=== PATIENT | female | born 1985 | race African-American/Black ===

== ENCOUNTER 2016-11-20 20:58 | Emergency (ER) | payer MEDICAID, OTHER ==
[~2016-11-20] VITALS: Ht 180.3 cm; Wt 200.0 kg
[~2016-11-20 20:58] MED LIST: ALBU6.7H INH; ASPI325T PO
[2016-11-20 21:03] VITALS: BP 122/58; PULSE 86; RESP 16; TEMP 97.1; O2SAT 98
[2016-11-20] MEDS ORDERED: ASPI81CH CHEW (21:44)
[2016-11-20] MEDS ORDERED: DEXAMETHASONE SOD PHOS 4 MG/ML VIAL IM ONE (21:45)
[2016-11-20] MEDS ORDERED: RESP: ALBUTEROL 2.5 MG/IPRATROPIUM 0.5 MG NEB (SCH) NEB ONE (21:45)
--- NOTE | 2016-11-20 21:45 | PD ---
HPI Chief Complaint: Cold / Flu Symptoms Time Seen by Provider: 21:35 Travel History International Travel<30 days: No Contact w/Intl Traveler<30days: No Traveled to known affect area: No History of Present Illness HPI 31-year-old female presents to the emergency department for evaluation of cough and chest congestion worsening over the last 3 days. Patient states she feels so tired breathe at times. Reports sore throat and ear pain as well. No definitive fever but has felt chilled. She has no other symptoms to report at this time. [facility] Past Medical History Asthma: Yes Cerebrovascular Accident: Yes (TIA) Diminished Hearing: No Immunizations Current: No : 2 Para: 1 Miscarriage: 1 Past Surgical History Section: Yes Endocrine Surgery: No Other Surgery: Yes (TONSILECTOMY) Social History Alcohol Use: No Tobacco Use: No Substance Use: No Allergies-Medications (Allergen,Severity, Reaction): Coded Allergies: Fish Containing Products (Unverified Allergy, Severe, 11/20/16) acetaminophen (Unverified Allergy, Severe, Itching, 11/20/16) oxycodone (Unverified Allergy, Severe, Itching, 11/20/16) Reported Meds & Prescriptions Reported Meds & Active Scripts Active Proair Hfa 8.5 GM Inh (Albuterol Sulfate) 90 Mcg/Act Aer 2 Puff INH Q4HR PRN 108 mcg/actuation Prednisone 50 Mg Tab 50 Mg PO DAILY 5 Days Reported Aspirin 81 Mg Chew 162 Mg CHEW ONCE Review of Systems Except as stated in HPI: all other systems reviewed are Neg Physical Exam Narrative GENERAL: Well-nourished female patient, ambulatory no acute distress. SKIN: Focused skin assessment warm/dry. HEAD: Atraumatic. Normocephalic. EYES: Pupils equal and round. No scleral icterus. No injection or drainage. ENT: No nasal bleeding or discharge. Mucous membranes pink and moist. NECK: Trachea midline. No JVD. CARDIOVASCULAR: Regular rate and rhythm. No murmur appreciated. RESPIRATORY: No accessory muscle use. Diminished to auscultation. Breath sounds equal bilaterally. GASTROINTESTINAL: Abdomen soft, non-tender, nondistended. Hepatic and splenic margins not palpable. MUSCULOSKELETAL: No obvious deformities. No clubbing. No cyanosis. No edema. NEUROLOGICAL: Awake and alert. No obvious cranial nerve deficits. Motor grossly within normal limits. Normal speech. PSYCHIATRIC: Appropriate mood and affect; insight and judgment normal. Data Data Last Documented VS Vital Signs Date Time Temp Pulse Resp B/P (MAP) Pulse Ox O2 Delivery O2 Flow Rate FiO2 11/20/16 23:01 11/20/16 21:56 98 21 11/20/16 21:03 97.1 86 16 Room Air Orders Orders Chest, Single Ap (11/20/16 ) Albuterol-Ipratropium Neb (Duoneb Neb) (11/20/16 21:45) Dexamethasone Inj (Decadron Inj) (11/20/16 21:45) MDM Medical Decision Making Medical Screen Exam Complete: Yes Emergency Medical Condition: Yes Medical Record Reviewed: Yes Differential Diagnosis Bronchitis versus pneumonia versus influenza versus pharyngitis versus common cold Narrative Course 31-year-old female presents to emergency department for evaluation. Patient appears without distress. Lung sounds are diminished. X-ray imaging is ordered with no acute cardiopulmonary disease identified. Patient is given DuoNeb and steroid treatment here. She verbalizes improvement after her neb treatment. Patient will be discharged home to follow-up with primary care provider and return immediately with any acute worsening symptoms. Diagnosis Primary Impression: Bronchitis Referrals: Primary Care Physician Patient Instructions: Acute Bronchitis (ED), General Instructions Departure Forms: Tests/Procedures, Work Release Enter return to work date: Nov 22, 2016 Additional Instructions: Humidified air may help to alleviate symptoms Follow-up with a primary care provider Ibuprofen as directed on the package as needed for pain Return immediately to the emergency department with any acute worsening symptoms Med/Other Pt SpecificInfo: Prescription(s) given Scripts Albuterol 8.5 GM Inh (Proair Hfa 8.5 GM Inh) 90 Mcg/Act Aer 2 PUFF INH Q4HR Y for SHORTNESS OF BREATH, #1 INHALER 0 Refills 108 mcg/actuation Prov: Alis Turner 11/20/16 Prednisone (Prednisone) 50 Mg Tab 50 MG PO DAILY for 5 Days, #5 TAB 0 Refills Prov: Alis Turner 11/20/16 Disposition: 01 DISCHARGE HOME Condition: Stable Alis Turner Nov 20, 2016 21:45
[2016-11-20 21:56] VITALS: O2SAT 98
--- NOTE | 2016-11-20 22:30 | RADRPT ---
EXAM DATE/TIME: 11/20/2016 21:54 [facility] COMPARISON: No previous studies available for comparison. INDICATIONS : Short of breath. MEDICAL HISTORY : TIA. SURGICAL HISTORY : None. ENCOUNTER: Initial ACUITY: 1 day PAIN SCORE: 0/10 LOCATION: Bilateral chest FINDINGS: A single view of the chest demonstrates the lungs to be symmetrically aerated without evidence of mas s, infiltrate or effusion. The cardiomediastinal contours are unremarkable. Osseous structures are intact. CONCLUSION: No evidence of acute cardiopulmonary disease. Barney Martin MD on November 20, 2016 at 22:28 Board Certified Radiologist. This report was verified electronically.
[2016-11-20] MEDS ORDERED: ALBUAER3 INH (22:45)
[2016-11-20] MEDS ORDERED: PRED50 PO (22:45)
== END 2016-11-20 23:02 | disposition home or self-care (01) ==
LOC: NEPD 20:58
DX: J40 Bronchitis, not specified as acute or chronic (principal); R07.0 Pain in throat; H92.09 Otalgia, unspecified ear; R68.83 Chills (without fever); Z87.09 Personal history of other diseases of the respiratory system; Z86.73 Personal history of transient ischemic attack (TIA), and cerebral infarction without residual deficits
CPT/HCPCS: 71010; 94664; 96372; 99284; J1100

== ENCOUNTER 2017-01-17 00:27 | Observation (INO) | payer OTHER ==
[~2017-01-17] VITALS: Ht 180.3 cm; Wt 190.0 kg
[~2017-01-17 00:27] MED LIST changes: -ALBU6.7H INH; +ALBUAER3 INH; +ASPI-516 CHEW; -ASPI325T PO; +PRED50 PO
[2017-01-17 00:28] VITALS: BP 180/80; PULSE 78; RESP 22; TEMP 98.2; O2SAT 98
[2017-01-17 01:45] VITALS: RESP 19; O2SAT 100
[2017-01-17] MEDS ORDERED: SODIUM CHLORIDE 0.9% FLUSH 10 ML FLUSH IVF PRN (02:00)
[2017-01-17] MEDS ORDERED: ASPIRIN 81 MG CHEW TAB PO ONE (02:00)
[2017-01-17 02:20] LABS: AUTOMATED NEUTROPHIL # 8.9 TH/MM3 (1.8-7.7); BASOPHIL # 0.1 TH/MM3 (0-0.2); BASOPHIL % 1.2 % (0.0-2.0); EOSINOPHIL # 0.1 TH/MM3 (0-0.4); EOSINOPHIL % 1.1 % (0.0-4.0); HEMATOCRIT 31.7 % (35.0-46.0); HEMO FLAGS DIFF FINAL; LYMPH % 16.2 % (9.0-44.0); MEAN CELL VOLUME 78.2 FL (80.0-100.0); MEAN CORPUSCULAR HEMOGLOBIN 25.4 PG (27.0-34.0); MEAN CORPUSCULAR HGB CONC 32.5 % (32.0-36.0); MONO % 9.4 % (0.0-8.0); NEUT % 72.1 % (16.0-70.0); PLATELET COUNT 379 TH/MM3 (150-450); RED BLOOD COUNT 4.06 MIL/MM3 (4.00-5.30); RED CELL DISTRIBUTION WIDTH 17.6 % (11.6-17.2); WHITE BLOOD COUNT 12.3 TH/MM3 (4.0-11.0)
[2017-01-17 02:25] LABS: APTT (PATIENT) 30.7 SEC (24.3-30.1); PROTHROMBIN TIME - PATIENT 11.2 SEC (9.8-11.6)
--- NOTE | 2017-01-17 02:31 | RADRPT ---
EXAM DATE/TIME: 01/17/2017 02:19 [facility] COMPARISON: CHEST SINGLE AP, November 20, 2016, 21:54. INDICATIONS : Chest tightness with numbness to left leg and foot. MEDICAL HISTORY : TIA SURGICAL HISTORY : None. ENCOUNTER: Initial ACUITY: 1 day PAIN SCORE: 7/10 LOCATION: Bilateral chest FINDINGS: A single view of the chest was obtained. The study is Midinspiratory with crowding of the lung vascul ature. This demonstrates the lungs to be symmetrically aerated without evidence of mass, infiltrate o r effusion. The cardiomediastinal contours are unremarkable. Osseous structures are intact. There a re overlying electrocardiogram leads. CONCLUSION: Midinspiratory exam with no definite acute cardiopulmonary disease. Ta Hong MD on January 17, 2017 at 2:29 Board Certified Radiologist. This report was verified electronically.
[2017-01-17 02:32] LABS: ANION GAP 7 MEQ/L (5-15); BICARBONATE 25.3 MEQ/L (21.0-32.0); BLOOD UREA NITROGEN 15 MG/DL (7-18); CHLORIDE 107 MEQ/L (98-107); GLOMERULAR FILTRATION RATE 81 ML/MIN (>89); MAGNESIUM 1.9 MG/DL (1.5-2.5); POTASSIUM 4.1 MEQ/L (3.5-5.1); SODIUM (NA) 139 MEQ/L (136-145)
[2017-01-17 02:36] LABS: CREATINE KINASE 233 U/L (26-192)
[2017-01-17 02:48] LABS: CKMB 0.7 NG/ML (0.5-3.6)
--- NOTE | 2017-01-17 03:10 | RADRPT ---
EXAM DATE/TIME: 01/17/2017 02:45 [facility] COMPARISON: CT BRAIN W/O CONTRAST, December 12, 2015, 16:52. INDICATIONS : Cephalgia. RADIATION DOSE: 56.35 CTDIvol (mGy) MEDICAL HISTORY : Non-responsive. SURGICAL HISTORY : None. ENCOUNTER: Initial ACUITY: 1 day PAIN SCALE: 5/10 LOCATION: cranial TECHNIQUE: Multiple contiguous axial images were obtained of the head. Using automated exposure control and adj ustment of the mA and/or kV according to patient size, radiation dose was kept as low as reasonably a chievable to obtain optimal diagnostic quality images. DICOM format image data is available electro nically for review and comparison. FINDINGS: CEREBRUM: The ventricles are normal for age. No evidence of midline shift, mass lesion, hemorrhage or acute in farction. No extra-axial fluid collections are seen. POSTERIOR FOSSA: The cerebellum and brainstem are intact. The 4th ventricle is midline. The cerebellopontine angle i s unremarkable. EXTRACRANIAL: The visualized portion of the orbits is intact. SKULL: The calvaria is intact. No evidence of skull fracture. CONCLUSION: Negative noncontrast head CT. Ta Hong MD on January 17, 2017 at 3:08 Board Certified Radiologist. This report was verified electronically.
[2017-01-17 03:59] VITALS: BP 135/69; PULSE 72; RESP 16; O2SAT 99
[2017-01-17] MEDS ORDERED: SODIUM CHLOR 0.9% 1000 ML INJ 1,000 ML IV SCH (04:34)
--- NOTE | 2017-01-17 04:38 | PD ---
HPI Chief Complaint: Chest Pain Time Seen by Provider: 01:52 Travel History International Travel<30 days: No Contact w/Intl Traveler<30days: No Traveled to known affect area: No History of Present Illness HPI 31-year-old female presents to the emergency department for complaint of chest pain and tingling in her left arm and leg. According to the patient around 6 PM on evening she started noticing some retrosternal chest discomfort that was intermittent in nature. Patient reports she's had this before but usually it goes away on its own. Patient denies any referred neck jaw back shoulder or abdominal pain. Patient also denies any extremity pain. Patient does complain of some tingling in the left arm and leg and notes some weakness. Patient has noted the symptoms since approximately 9 PM. Patient states she' s had these symptoms before as well and was told in the past she had a TIA and was seen in the past year here with symptoms affecting the right side and was told to follow-up with a neurologist but she did not do so. Patient denies any injury or fall. Patient's had no fever or chills. Patient states that symptoms seem to be improving. Patient does not report any headache, confusion , visual disturbance, facial droop, difficulty with speech, difficulty with swallowing, balance disturbance, but does note some left-sided tingling and some weakness. Patient states she drove herself to the hospital and has had no trouble ambulating this evening. Patient denies control pill use hormone replacement or tobacco use. PFSH Past Medical History Narrative Medical Asthma, TIA, , cholecystectomy, tonsillectomy; no alcohol use no tobacco use no substance use; family history hypertension; nursing notes reviewed Asthma: Yes Cerebrovascular Accident: Yes (TIA) Diminished Hearing: No Immunizations Current: No ?: Not : 2 Para: 1 Miscarriage: 1 Past Surgical History Section: Yes (x2) Cholecystectomy: Yes Endocrine Surgery: No Tonsillectomy: Yes Other Surgery: Yes (TONSILECTOMY) Social History Alcohol Use: No Tobacco Use: No Substance Use: No Allergies-Medications (Allergen,Severity, Reaction): Coded Allergies: Fish Containing Products (Unverified Allergy, Severe, 01/17/17) acetaminophen (Unverified Allergy, Severe, Itching, 01/17/17) oxycodone (Unverified Allergy, Severe, Itching, 01/17/17) shellfish derived (Verified Allergy, Intermediate, Itching, 01/17/17) IN THROAT Reported Meds & Prescriptions Reported Meds & Active Scripts Active Proair Hfa 8.5 GM Inh (Albuterol Sulfate) 90 Mcg/Act Aer 2 Puff INH Q4HR PRN 108 mcg/actuation Reported Aspirin 81 Mg Chew 162 Mg CHEW ONCE Review of Systems Except as stated in HPI: all other systems reviewed are Neg General / Constitutional: No: Fever, Chills Eyes: No: Diploplia, Blurred Vision, Visual changes HENT: No: Headaches, Vertigo, Lightheadedness, Neck Stiffness, Neck Pain Cardiovascular: No: Chest Pain or Discomfort, Palpitations, Diaphoresis, Syncope Respiratory: No: Cough, Shortness of Breath Gastrointestinal: No: Nausea, Vomiting Genitourinary: No: Urgency, Frequency, Dysuria Musculoskeletal: No: Myalgias, Arthralgias Skin: No Rash Neurologic: Positive: Focal Abnormalities ("mild weakness" LUE/LLE), Paresthesia (LUE/LLE), No: Weakness, Dizziness, Syncope, Coordination Problem, Headache, Change in Mentation, Slurred Speech, Seizures Physical Exam Narrative GENERAL: Well-developed well-nourished female in no acute distress no respiratory distress clinically obese; GCS 15 SKIN: Warm and dry. HEAD: Atraumatic. Normocephalic. EYES: Pupils equal and round. Extraocular muscles intact. No scleral icterus. No injection or drainage. ENT: No nasal bleeding or discharge. Mucous membranes pink and moist. NECK: Trachea midline. No JVD. CARDIOVASCULAR: Regular rate and rhythm. RESPIRATORY: No accessory muscle use. Clear to auscultation. Breath sounds equal bilaterally. GASTROINTESTINAL: Abdomen soft, non-tender, nondistended. Hepatic and splenic margins not palpable. MUSCULOSKELETAL: Extremities without clubbing, cyanosis, or edema. No obvious deformities. NEUROLOGICAL: Awake and alert. GCS 15. No obvious cranial nerve deficits. Motor grossly within normal limits except for mild weakness of the left upper extremity and left lower extremity with pronator drift at less than 10 seconds of the left upper extremity and 4-5/10 motor strength left upper extremity and 4 -5 over 5 left lower extremity. Five out of 5 muscle strength in the arms and legs. Normal speech. PSYCHIATRIC: Appropriate mood and affect; insight and judgment normal. Data Data Last Documented VS Vital Signs Date Time Temp Pulse Resp B/P (MAP) Pulse Ox O2 Delivery O2 Flow Rate FiO2 01/17/17 03:59 72 16 135/69 (91) 99 Room Air 01/17/17 01:45 2.00 01/17/17 00:28 98.2 Orders Orders Electrocardiogram (01/17/17 ) Electrocardiogram (01/17/17 01:52) Basic Metabolic Panel (Bmp) (01/17/17 01:52) Ckmb (Isoenzyme) Profile (01/17/17 01:52) Complete Blood Count With Diff (01/17/17 01:52) Magnesium (Mg) (01/17/17 01:52) Prothrombin Time / Inr (Pt) (01/17/17 01:52) Act Partial Throm Time (Ptt) (01/17/17 01:52) Troponin I (01/17/17 01:52) Chest, Single Ap (01/17/17 01:52) Ecg Monitoring (01/17/17 01:52) Bilateral Bp Monitoring (01/17/17 01:52) Iv Access Insert/Monitor (01/17/17 01:52) Oximetry (01/17/17 01:52) Oxygen Administration (01/17/17 01:52) Aspirin Chew (Aspirin Chew) (01/17/17 02:00) Sodium Chloride 0.9% Flush (Ns Flush) (01/17/17 02:00) Ct Brain W/O Iv Contrast(Rout) (01/17/17 ) Ed Urine Pregnancytest Poc (01/17/17 01:52) CKMB (01/17/17 01:50) CKMB% (01/17/17 01:50) Place In Observation (01/17/17 ) Code Status (01/17/17 04:34) Vital Signs (Adult) Q2HX12,Q4H (01/17/17 04:34) Nih Stroke Scale - Nihss .Daily (01/17/17 04:34) Neuro Checks Q2HX12,Q4H (01/17/17 04:34) Notify Dr: Other (01/17/17 04:34) Remove Urinary Catheter .ONCE (01/17/17 04:34) Ot Request For Service (01/17/17 04:34) Pt Request For Service (01/17/17 04:34) Case Management Consult (01/17/17 ) Activity Oob Ad Josefina (01/17/17 04:34) Nursing Bedside Swallow Assess .ONCE (01/17/17 04:34) Scd Bilateral/Knee High JIMBO.QSHIFT (01/17/17 04:34) Hemoglobin (Hgb) A1c (01/17/17 04:34) Lipid Profile (01/18/17 06:00) Us Carotid Arteries Comp Bilat (01/17/17 ) Mra Brain W/O Contrast (Cow) (01/17/17 ) Mri Brain W/O Contrast (01/17/17 ) Echo 2d Comp With Doppler (01/17/17 ) ^ Hold Medication (01/17/17 04:34) Consult Neurology (01/17/17 ) Sodium Chloride 0.9% Flush (Ns Flush) (01/17/17 09:00) Sodium Chloride 0.9% Flush (Ns Flush) (01/17/17 04:45) Sodium Chlor 0.9% 1000 Ml Inj (Ns 1000 M (01/17/17 04:34) Bedside Glucose JIMBO.CSUGAR (01/17/17 04:34) ^ Discontinue Insulin Orders (01/17/17 04:34) Insulin Aspart Supplemtl Scale (Novolog (01/17/17 08:00) Dextrose 50% In Olive (Vial) Inj (D50w (Vi (01/17/17 04:45) Glucagon Inj (Glucagon Inj) (01/17/17 04:45) Stand Up Forklift Operator / Telemetry JIMBO.Q8H (01/17/17 04:34) Consult Stroke Navigator (01/17/17 ) Heparin Inj (Heparin Inj) (01/17/17 04:45) Creatine Kinase (Cpk) (01/17/17 08:00) Creatine Kinase (Cpk) (01/17/17 14:00) Troponin I (01/17/17 08:00) Troponin I (01/17/17 14:00) Electrocardiogram (01/17/17 08:00) Electrocardiogram (01/17/17 14:00) Admit Order (Ed Use Only) (01/17/17 ) Stand Up Forklift Operator / Telemetry JIMBO.Q8H (01/17/17 04:39) Diet Heart Healthy (01/17/17 Breakfast) Activity Oob With Assistance (01/17/17 04:39) Notify Dr: Other (01/17/17 04:39) Labs Laboratory Tests Test 01/17/17 01:50 White Blood Count 12.3 TH/MM3 Red Blood Count 4.06 MIL/MM3 Hemoglobin 10.3 GM/DL Hematocrit 31.7 % Mean Corpuscular Volume 78.2 FL Mean Corpuscular Hemoglobin 25.4 PG Mean Corpuscular Hemoglobin Concent 32.5 % Red Cell Distribution Width 17.6 % Platelet Count 379 TH/MM3 Mean Platelet Volume 8.4 FL Neutrophils (%) (Auto) 72.1 % Lymphocytes (%) (Auto) 16.2 % Monocytes (%) (Auto) 9.4 % Eosinophils (%) (Auto) 1.1 % Basophils (%) (Auto) 1.2 % Neutrophils # (Auto) 8.9 TH/MM3 Lymphocytes # (Auto) 2.0 TH/MM3 Monocytes # (Auto) 1.2 TH/MM3 Eosinophils # (Auto) 0.1 TH/MM3 Basophils # (Auto) 0.1 TH/MM3 CBC Comment DIFF FINAL Differential Comment Prothrombin Time 11.2 SEC Prothromb Time International Ratio 1.0 RATIO Activated Partial Thromboplast Time 30.7 SEC Blood Urea Nitrogen 15 MG/DL Creatinine 0.97 MG/DL Random Glucose 98 MG/DL Calcium Level 8.4 MG/DL Magnesium Level 1.9 MG/DL Sodium Level 139 MEQ/L Potassium Level 4.1 MEQ/L Chloride Level 107 MEQ/L Carbon Dioxide Level 25.3 MEQ/L Anion Gap 7 MEQ/L Estimat Glomerular Filtration Rate 81 ML/MIN Total Creatine Kinase 233 U/L Creatine Kinase MB 0.7 NG/ML Creatine Kinase MB % 0.3 % Troponin I LESS THAN 0.02 NG/ML MDM Medical Decision Making Medical Screen Exam Complete: Yes Emergency Medical Condition: Yes Medical Record Reviewed: Yes Interpretation(s) Troponin I less than 0.02, not elevated; CK 233 mildly elevated but CK-MB percent is 0.2% not elevated EKG normal sinus rhythm rate [address] elevation injury pattern or ectopy noted Last Impressions Chest X-Ray 01/17/17 0152 Signed Impressions: Service Date/Time: Tuesday, January 17, 2017 02:19 - CONCLUSION: Midinspiratory exam with no definite acute cardiopulmonary disease. Ta Hong MD Head CT 01/17/17 0000 Signed Impressions: Service Date/Time: Tuesday, January 17, 2017 02:45 - CONCLUSION: Negative noncontrast head CT. 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 CT brain noncontrast ordered Lab values are found to be grossly within normal range except for nonspecific CK of 233 with normal MB percent is 0.3% and mild elevation of total white cell count 12,000 CT brain noncontrast reveals no acute process EKG sinus rhythm no ectopy or injury pattern Patient continues to show some improvement on her physical exam however concern for third visit for similar type TIA/CVA-type symptoms and needs completion of workup as well as serial cardiac enzymes case discussed with on-call medicine for admission At 5:15 AM as patient being prepared to be taken over to clinical decision unit patient states that she cannot be admitted to the hospital and she refuses to stay and will sign out AGAINST MEDICAL ADVICE. AMA: The risks of leaving against medical advice without further evaluation treatment were discussed with the patient. These risks include cardiac dysfunction, cardiac dysrhythmia, possible heart attack, possible stroke or . The patient indicated understanding of these risks and appeared to have the capacity to make this decision. Physician Communication Physician Communication case discussed with [facility] MD Dr Barnes Diagnosis Primary Impression: Numbness and tingling Additional Impression: Chest pain Admitting Information Admitting Physician Requests: Observation Disposition: 07 AGAINST MEDICAL ADVICE Condition: Stable Claudia Forde MD Jan 17, 2017 04:38
[2017-01-17] MEDS ORDERED: DEXTROSE 50% IN WATER 50 ML VIAL(D50) IV PUSH PRN (04:45)
[2017-01-17] MEDS ORDERED: HEPARIN SODIUM - SQ 10,000 UNITS/ML VIAL SQ SCH (04:45)
[2017-01-17] MEDS ORDERED: GLUCAGON 1 MG/ML VIAL OTHER PRN (04:45)
[2017-01-17] MEDS ORDERED: SODIUM CHLORIDE 0.9% FLUSH 5 ML FLUSH IV FLUSH PRN (04:45)
[2017-01-17] MEDS ORDERED: INSULIN ASPART SUPPLEMENTAL SCALE SQ SCH (08:00)
[2017-01-17] MEDS ORDERED: SODIUM CHLORIDE 0.9% FLUSH 5 ML FLUSH IV FLUSH SCH (09:00)
--- NOTE | 2017-01-17 13:19 | EKG ---
Date Performed: 01/17/2017 Time Performed: 00:48:08 PTAGE: 31 years EKG: Sinus rhythm LOW QRS VOLTAGE IN PRECORDIAL LEADS Since previous tracing, no significant change noted BORDERLINE E CG PREVIOUS TRACING : 12/12/2015 16.00 DOCTOR: Marco A Handy Interpretating Date/Time 01/17/2017 13:17:45
[2017-01-17 16:41] LABS: HEMOGLOBIN A1a 0.7 %; HEMOGLOBIN A1b 0.9 %; HEMOGLOBIN Ao 85.6 %; HEMOGLOBIN F 0.8 %; HEMOGLOBIN LA1C 1.6 %; HEMOGLOBIN P3 3.5 %
== END 2017-01-17 05:36 | disposition left against medical advice (07) ==
LOC: NEPC 00:27 → NEDA 04:40
PROVIDERS: ADMIT Family Medicine; ATTEND Family Medicine
DX: R07.89 Other chest pain (principal); R20.0 Anesthesia of skin; J45.909 Unspecified asthma, uncomplicated; R94.31 Abnormal electrocardiogram [ECG] [EKG]; Z86.73 Personal history of transient ischemic attack (TIA), and cerebral infarction without residual deficits
CPT/HCPCS: 70450; 71010; 80048; 82550; 82552; 83036; 83735; 84484; 84703; 85025; 85610; 85730; 93005; 96372; 99285; G0378; J1644

== ENCOUNTER 2017-01-17 11:02 | Observation (INO) | payer OTHER ==
[~2017-01-17] VITALS: Ht 180.3 cm; Wt 190.0 kg
[2017-01-17 11:07] VITALS: BP 158/78; PULSE 84; RESP 15; TEMP 98.4; O2SAT 100
[2017-01-17 11:39] VITALS: BP 135/67; PULSE 76; RESP 18
--- NOTE | 2017-01-17 14:00 | PD ---
HPI Chief Complaint: Numbness/Tingling Time Seen by Provider: 11:37 Travel History International Travel<30 days: No Contact w/Intl Traveler<30days: No Traveled to known affect area: No History of Present Illness HPI Some morbidly obese 31-year-old woman who presents to the emergency department complaint of left sided numbness tingling or weakness. She was seen in the emergency department overnight with left-sided numbness tingling weakness as well as chest pain. She is a history of intermittent episodes of numbness tingling or weakness in the past of unclear etiology. I saw her back in November of last year with right sided numbness and tingling symptoms. She states symptoms been intermittent, couple times a year, for the past several years. Initial workups unremarkable and her planning on admitting her for further evaluation for the numbness tingling weakness and chest pain but she left AMA. She states she still having weakness and so she would like to be reevaluated. History Past Medical History Narrative Medical Asthma Obesity Tetanus Vaccination: < 5 Years Influenza Vaccination: No LMP: 12/08/16 : 2 Para: 1 Social History Alcohol Use: No Tobacco Use: No Allergies-Medications (Allergen,Severity, Reaction): Coded Allergies: Fish Containing Products (Unverified Allergy, Severe, 01/17/17) acetaminophen (Unverified Allergy, Severe, Itching, 01/17/17) oxycodone (Unverified Allergy, Severe, Itching, 01/17/17) shellfish derived (Verified Allergy, Intermediate, Itching, 01/17/17) IN THROAT Reported Meds & Prescriptions Reported Meds & Active Scripts Active Reported Aspirin 81 Mg Chew 162 Mg CHEW ONCE Review of Systems Except as stated in HPI: all other systems reviewed are Neg Physical Exam Narrative GENERAL: Morbidly obese 31-year-old woman, no acute distress. SKIN: Focused skin assessment warm/dry. HEAD: Atraumatic. Normocephalic. EYES: Pupils equal and round. No scleral icterus. No injection or drainage. ENT: No nasal bleeding or discharge. Mucous membranes pink and moist. NECK: Trachea midline. No JVD. CARDIOVASCULAR: Regular rate and rhythm. No murmur appreciated. RESPIRATORY: No accessory muscle use. Clear to auscultation. Breath sounds equal bilaterally. GASTROINTESTINAL: Abdomen soft, non-tender, nondistended. Hepatic and splenic margins not palpable. MUSCULOSKELETAL: No obvious deformities. No clubbing. No cyanosis. No edema. NEUROLOGICAL: Awake and alert. Cranial nerve exams unremarkable. Sensation is normal in the face bilaterally. Patient demonstrates left-sided upper and lower extremity weakness on exam with direct testing. Possibly diminished effort. Also displaced diminished subjective sensation with paresthesias on the left arm and leg as well. PSYCHIATRIC: Appropriate mood and affect; insight and judgment normal. Data Data Last Documented VS Vital Signs Date Time Temp Pulse Resp B/P (MAP) Pulse Ox O2 Delivery O2 Flow Rate FiO2 01/17/17 11:43 97 01/17/17 11:39 76 18 135/67 (89) 01/17/17 11:07 98.4 Orders Orders Troponin I (01/17/17 11:50) Electrocardiogram (01/17/17 ) Admit Order (Ed Use Only) (01/17/17 ) Labs Laboratory Tests Test 01/17/17 12:50 Troponin I LESS THAN 0.02 NG/ML MDM Medical Decision Making Medical Screen Exam Complete: Yes Emergency Medical Condition: Yes Interpretation(s) Reviewed labs EKG imaging from earlier today. My review of EKG from this visit, normal sinus rhythm at a rate of 72, normal axis, normal intervals, no acute ischemia. Troponin negative Differential Diagnosis Numbness and tingling, paresthesias, hysteria, MS, CVA or stroke, other Narrative Course Medical decision making 31-year-old morbidly obese woman presents with left-sided numbness tingling weakness on exam. I don't think that she has MS or stroke. Symptoms been ongoing intermittent for a while. Complex migraine seems possible but unlikely. Possibly functional weakness. Nonetheless with objective neurologic deficits, agree with Dr. Forde admission for further evaluation. Diagnosis Primary Impression: Numbness and tingling Additional Impression: Left-sided weakness Admitting Information Admitting Physician Requests: Solomon Eckert MD Jan 17, 2017 14:00
[2017-01-17] MEDS ORDERED: MAGNESIUM HYDROXIDE SUSP 30 ML CUP PO PRN (15:00)
[2017-01-17] MEDS ORDERED: SENNOSIDES 8.6 MG TAB PO PRN (15:00)
[2017-01-17] MEDS ORDERED: BISACODYL 10 MG SUPP RECTAL PRN (15:00)
[2017-01-17] MEDS ORDERED: NALOXONE HCL 0.4 MG/ML AMP IV PUSH PRN (15:00)
[2017-01-17] MEDS ORDERED: ACETAMINOPHEN 325 MG TAB PO PRN (15:00)
[2017-01-17] MEDS ORDERED: ENOXAPARIN SODIUM 40 MG/0.4 ML SYRINGE SQ SCH (15:00)
[2017-01-17] MEDS ORDERED: SODIUM CHLORIDE 0.9% FLUSH 10 ML FLUSH IV FLUSH PRN (15:00)
[2017-01-17] MEDS ORDERED: LACTULOSE SYRUP 20 GM/30 ML CUP PO PRN (15:00)
[2017-01-17 15:36] VITALS: BP 136/75; PULSE 82; RESP 20; O2SAT 100
[2017-01-17 16:35] VITALS: BP 136/75
[2017-01-17 16:59] VITALS: BP 137/58; PULSE 80; RESP 20; TEMP 98.2; O2SAT 99
[2017-01-17 17:27] LABS: CREATINE KINASE 183 U/L (26-192)
[2017-01-17 17:39] LABS: CKMB 0.7 NG/ML (0.5-3.6)
--- NOTE | 2017-01-17 19:02 | HHI.HP ---
[facility] Service Family Medicine Primary Care Physician No Primary Care Physician Admission Diagnosis left-sided numbness, left-sided weakness Diagnoses: International Travel<30 Days: No Contact w/Intl Traveler<30days: No Known Affected Area: No History of Present Illness 31-year-old morbidly obese female with history of Budd-Chiari malformation presenting with a 1 day history of left-sided numbness/tingling and weakness as well as some substernal chest pain/pressure. Yesterday evening, she started experiencing some numbness and tingling of her left upper extremity and to a lesser degree her left lower extremity. She feels very slightly weak in the same areas. At the same time, she felt some substernal chest pressure. She came into the ER around 2 AM this morning where workup was initiated including a normal troponin and EKG. She left AMA, and now is back. She states that her chest pain has resolved, but she still has some numbness and tingling in her left forearm and hand and to lesser degree her left foot. She denies any shortness of breath or current chest pain. She denies dyspnea on exertion. She denies headaches. She does note that she had a little bit of blurry vision yesterday, but this is also resolved. (Pepe Hanley MD R2) Review of Systems Constitutional: DENIES: Fever, Chills Eyes: COMPLAINS OF: Blurred vision, DENIES: Vision loss Ears, nose, mouth, throat: DENIES: Throat pain, Ear Pain, Sinus Pain Respiratory: DENIES: Cough, Wheezing, Shortness of breath Cardiovascular: COMPLAINS OF: Chest pain, DENIES: Palpitations, Dyspnea on Exertion, Lower Extremity Edema, Orthopnea Gastrointestinal: DENIES: Abdominal pain, Black stools, Bloody stools, Constipation, Diarrhea, Nausea, Vomiting Genitourinary: DENIES: Urinary frequency, Dysuria Musculoskeletal: DENIES: Joint pain, Muscle aches Integumentary: DENIES: Rash Immunologic/allergic: DENIES: Urticaria Neurologic: COMPLAINS OF: Paresthesias, DENIES: Abnormal gait, Headache, Localized weakness, Seizures, Speech Problems, Tremor Psychiatric: DENIES: Anxiety, Depression (Pepe Hanley MD R2) Past Family Social History Past Medical History Budd-Chiari malformation Similar episodes of numbness/tingling or isolated weakness in the past, has had MRIs; only diagnosis Budd-Chiari information Past Surgical History None Reported Medications Aspirin 81 mg daily (Pepe Hanley MD R2) Allergies: Coded Allergies: Fish Containing Products (Unverified Allergy, Severe, 01/17/17) oxycodone (Unverified Allergy, Severe, Itching, 01/17/17) shellfish derived (Verified Allergy, Intermediate, Itching, 01/17/17) IN THROAT Active Ordered Medications Current Medications Medications (Trade) Dose Ordered Sig/Nikia Route Start Time Stop Time Status Last Admin (NS Flush) 2 ml UNSCH PRN IV FLUSH 01/17/17 15:00 (NS Flush) 2 ml BID IV FLUSH 01/17/17 21:00 01/17/17 21:00 (Tylenol) 650 mg Q4H PRN PO 01/17/17 15:00 (Lovenox Inj) 40 mg Q24H SQ 01/17/17 15:00 01/17/17 15:05 (Narcan Inj) 0.4 mg UNSCH PRN IV PUSH 01/17/17 15:00 (Elizbaet-Colace) 1 tab BID PO 01/17/17 21:00 (Milk Of Magnesia Liq) 30 ml Q12H PRN PO 01/17/17 15:00 (Senokot) 17.2 mg Q12H PRN PO 01/17/17 15:00 (Dulcolax Supp) 10 mg DAILY PRN RECTAL 01/17/17 15:00 (Lactulose Liq) 30 ml DAILY PRN PO 01/17/17 15:00 (Aspirin Chew) 81 mg DAILY CHEW 01/18/17 09:00 Family History Negative for early cardiac disease Social History Does not smoke, drink, or use illicit drugs. (Pepe Hanley MD R2) Physical Exam Vital Signs Vital Signs Date Time Temp Pulse Resp B/P (MAP) Pulse Ox O2 Delivery O2 Flow Rate FiO2 01/17/17 16:59 98.2 80 20 137/58 (84) 99 01/17/17 16:35 136/75 (95) 99 01/17/17 15:36 82 20 136/75 (95) 100 01/17/17 11:43 97 01/17/17 11:39 76 18 135/67 (89) 01/17/17 11:07 98.4 84 15 158/78 (104) 100 Physical Exam GENERAL: Morbidly obese female lying in bed in no acute distress SKIN: No rashes, ecchymoses or lesions. Cool and dry. HEAD: NC/AT EYES: PERRL. EOMI. No conjunctival injection or drainage. ENT: MMM, OP without erythema, tonsillar swelling, or exudate. NECK: Supple, no lymphadenopathy. Large neck circumference. No JVD. CARDIOVASCULAR: NRRR. Normal S1/S2. No MRG RESPIRATORY: Normal rate and effort. CTAB. No crackles or wheezes. GASTROINTESTINAL: Abdomen soft, non-distended, non-tender. Unable to determine presence of organomegaly or masses due to body habitus. MUSCULOSKELETAL: Extremities without clubbing, cyanosis, or edema. NEUROLOGICAL: Awake and alert. Cranial nerves II through XII intact. Sensation to light touch diminished over C6 to 8 dermatome, L4 and L5 dermatome of left side. Poor effort at first on left side, but on motivation strength is 5 out of 5 throughout all major muscle groups. Normal speech. Repetition and naming intact. Rapid alternating movement testing negative. Heel to gracia testing negative. Finger to nose testing negative. Laboratory Laboratory Tests Test 01/17/17 12:50 01/17/17 16:45 Troponin I LESS THAN 0.02 LESS THAN 0.02 Total Creatine Kinase 183 Creatine Kinase MB 0.7 (Pepe Hanley MD R2) Imaging Negative head CT on 01/17/17 Course Item Value Date Time White Blood Count 12.3 TH/MM3 H 01/17/17 0150 Red Blood Count 4.06 MIL/MM3 01/17/17 015 Hemoglobin 10.3 GM/DL L 01/17/17 015 Hematocrit 31.7 % L 01/17/17 0150 Mean Corpuscular Volume 78.2 FL L 01/17/17 0150 Mean Corpuscular Hemoglobin 25.4 PG L 01/17/17 015 Mean Corpuscular Hemoglobin Concent 32.5 % 01/17/17 015 Red Cell Distribution Width 17.6 % H 01/17/17 015 Platelet Count 379 TH/MM3 01/17/17 015 Mean Platelet Volume 8.4 FL 01/17/17 0150 Neutrophils (%) (Auto) 72.1 % H 01/17/17 015 Lymphocytes (%) (Auto) 16.2 % 01/17/17149 Monocytes (%) (Auto) 9.4 % H 01/17/17 015 Eosinophils (%) (Auto) 1.1 % 01/17/17 015 Basophils (%) (Auto) 1.2 % 01/17/17149 Neutrophils # (Auto) 8.9 TH/MM3 H 01/17/17149 Lymphocytes # (Auto) 2.0 TH/MM3 01/17/17149 Monocytes # (Auto) 1.2 TH/MM3 H 01/17/17149 Eosinophils # (Auto) 0.1 TH/MM3 01/17/17149 Basophils # (Auto) 0.1 TH/MM3 01/17/17149 CBC Comment DIFF FINAL 01/17/17149 Sodium Level 139 MEQ/L 01/17/17149 Potassium Level 4.1 MEQ/L 01/17/17149 Chloride Level 107 MEQ/L 01/17/17149 Carbon Dioxide Level 25.3 MEQ/L 01/17/17149 Anion Gap 7 MEQ/L 01/17/17149 Blood Urea Nitrogen 15 MG/DL 01/17/17149 Creatinine 0.97 MG/DL 01/17/17149 Estimat Glomerular Filtration Rate 81 ML/MIN L 01/17/17149 Random Glucose 98 MG/DL 01/17/17149 Hemoglobin A1c 5.5 % 01/17/17149 Calcium Level 8.4 MG/DL L 01/17/17149 Magnesium Level 1.9 MG/DL 01/17/17149 Total Creatine Kinase 152 U/L 01/17/172118 Creatine Kinase MB LESS THAN 0.5 NG/ML L 01/17/172118 Creatine Kinase MB % 0.3 % 01/17/17149 Troponin I LESS THAN 0.02 NG/ML L 01/17/172118 Prothrombin Time 11.2 SEC 01/17/17149 Prothromb Time International Ratio 1.0 RATIO 01/17/17149 Activated Partial Thromboplast Time 30.7 SEC H 01/17/17149 (Pepe Hanley MD R2) Caprini VTE Risk Assessment Caprini VTE Risk Assessment: Mod/High Risk (score >= 2) (Pepe Hanley MD R2) Assessment and Plan Assessment and Plan 31-year-old with history of Budd-Chiari malformation presenting with: (Pepe Hanley MD R2) Attending Attestation THIS CASE WAS DISCUSSED WITH THE RESIDENT PHYSICIAN. I HAVE REVIEWED THE RECORD AND AGREE WITH THE ABOVE NOTE AND PLAN OF CARE WAS DISCUSSED. I HAVE AUTHORIZED THE ORDER FOR PLACEMENT IN OUT-PATIENT OBSERVATION STATUS. (Jessica Naik MD) Problem List: (1) Chest pain in adult ICD Codes: R07.9 - Chest pain, unspecified Status: Resolved Plan: Chest pain now resolved, however with obesity and gender ACS should be fully ruled out Initial EKG showing NSR with normal rate Initial troponin < 0.02 - Trend troponin, EKG - Tylenol PRN for pain - Continue home ASA (2) Numbness and tingling ICD Codes: R20.0 - Anesthesia of skin; R20.2 - Paresthesia of skin Status: Acute Plan: Exam benign, recurrent problem, h/o Budd-Chiari malformation on prior scans - MRI brain to r/o MS, other intracranial pathology - No h/o neck injury, but could consider neck imaging on outpatient basis if symptoms persist (3) Left-sided weakness ICD Codes: R53.1 - Weakness Status: Acute Plan: Reported weakness, but full strength on exam with effort - MRI as above (4) Leukocytosis ICD Codes: D72.829 - Elevated white blood cell count, unspecified Plan: Mildly elevated WBC of ~12 on admission. Exam benign. UA negative CXR negative - Repeat CBC in AM - Monitor clinically for other signs/symptoms (5) FEN/PPX Plan: Fluids: PO only Elecs: Monitor and replete PRN Nutrition: Diet regular basic DVT: Lovenox 40 mg SQ daily Code status: Full code (Pepe Hanley MD R2) Problem Qualifiers (1) Leukocytosis: Qualified Codes: D72.829 - Elevated white blood cell count, unspecified Pepe Hanley MD R2 Jan 17, 2017 19:02 Jessica Naik MD Jan 18, 2017 07:49
[2017-01-17 19:37] VITALS: BP 134/65; PULSE 76; RESP 18; TEMP 98.4; O2SAT 99
[2017-01-17] MEDS: SODIUM CHLORIDE 0.9% FLUSH 10 ML FLUSH IV FLUSH SCH (21:00)
[2017-01-17] MEDS: DOCUSATE SODIUM 50 MG/SENNA 8.6 MG TAB PO SCH (21:00)
[2017-01-17 21:58] LABS: CREATINE KINASE 152 U/L (26-192)
[2017-01-17 22:10] LABS: CKMB LESS THAN 0.5 NG/ML (0.5-3.6)
[2017-01-18 00:44] VITALS: BP 131/78; PULSE 68; RESP 18; TEMP 98.5; O2SAT 98
[2017-01-18 04:45] VITALS: BP 127/63; PULSE 67; RESP 18; TEMP 98.8; O2SAT 100
[2017-01-18 07:05] LABS: BICARBONATE 22.6 MEQ/L (21.0-32.0); POTASSIUM 4.2 MEQ/L (3.5-5.1)
[2017-01-18 07:41] LABS: AUTOMATED NEUTROPHIL # 6.6 TH/MM3 (1.8-7.7); BASOPHIL # 0.1 TH/MM3 (0-0.2); BASOPHIL % 0.9 % (0.0-2.0); EOSINOPHIL # 0.1 TH/MM3 (0-0.4); EOSINOPHIL % 1.4 % (0.0-4.0); HEMO FLAGS DIFF FINAL; LYMPH % 16.5 % (9.0-44.0); LYMPHOCYTE # 1.5 TH/MM3 (1.0-4.8); MEAN CELL VOLUME 78.4 FL (80.0-100.0); MEAN CORPUSCULAR HEMOGLOBIN 24.4 PG (27.0-34.0); MEAN CORPUSCULAR HGB CONC 31.1 % (32.0-36.0); MONO % 10.8 % (0.0-8.0); NEUT % 70.4 % (16.0-70.0); PLATELET COUNT 351 TH/MM3 (150-450); RED BLOOD COUNT 4.08 MIL/MM3 (4.00-5.30); RED CELL DISTRIBUTION WIDTH 17.6 % (11.6-17.2); WHITE BLOOD COUNT 9.4 TH/MM3 (4.0-11.0)
[2017-01-18 08:01] VITALS: BP 116/56; PULSE 77; RESP 20; TEMP 98.1; O2SAT 98
--- NOTE | 2017-01-18 08:03 | HHI.FPPN ---
Problem Problem List: (1) Morbid obesity due to excess calories (2) Weakness of right side of body (3) Numbness and tingling Subjective Subjective 31 year old woman with h/o Budd-Chiari malformation and morbid obesity c/o episode of left sided weakness, some tingling and chest pressure. She states she had concerns at home and so she decided to come to the ED to be evaluated. She states these episodes have been happening for a long time and she has been in an out of the ER for workup and nothing has been found except the Budd- Chiari malformation. She denies change in speech or vision, during the entire time she was having weakness she was able to ambulate normally. At the time of her evaluation this morning the patients symptoms had completely resolved. She denies CP, SOB, RICHARDS, Weakness, numbness, tingling or any other neurologic symptom and ROS otherwise negative Please see the resident history and physical for further clarification of her history Past Medical History Budd-Chiari malformation Similar episodes of numbness/tingling or isolated weakness in the past, has had MRIs; only diagnosis Budd-Chiari information Past Surgical History None Reported Medications Aspirin 81 mg daily [facility] Objective Objective Laboratory Tests - Abnormals Test 01/17/17 12:50 01/17/17 16:45 01/17/17 21:19 01/18/17 06:15 Troponin I LESS THAN 0.02 NG/ML LESS THAN 0.02 NG/ML LESS THAN 0.02 NG/ML Creatine Kinase MB LESS THAN 0.5 NG/ML Hemoglobin 9.9 GM/DL Hematocrit 32.0 % Mean Corpuscular Volume 78.4 FL Mean Corpuscular Hemoglobin 24.4 PG Mean Corpuscular Hemoglobin Concent 31.1 % Red Cell Distribution Width 17.6 % Neutrophils (%) (Auto) 70.4 % Monocytes (%) (Auto) 10.8 % Monocytes # (Auto) 1.0 TH/MM3 Calcium Level 8.3 MG/DL Vital Signs 01/17/17 01/17/17 01/17/17 01/17/17 11:07 11:39 11:43 15:36 Temp 98.4 Pulse 84 76 82 Resp 15 18 20 B/P (MAP) 158/78 (104) 135/67 (89) 136/75 (95) Pulse Ox 100 97 100 01/17/17 01/17/17 01/17/17 01/18/17 16:35 16:59 19:37 00:44 Temp 98.2 98.4 98.5 Pulse 80 76 68 Resp 20 18 18 B/P (MAP) 136/75 (95) 137/58 (84) 134/65 (88) 131/78 (95) Pulse Ox 99 99 99 98 01/18/17 04:45 Temp 98.8 Pulse 67 Resp 18 B/P (MAP) 127/63 (84) Pulse Ox 100 Physical exam GEN: normally nourished, in NAD, morbid obesity EYES: conjunctiva normal, PERRLA, EOMI. ENT: Mouth and pharynx normal. NECK: thyroid midline, carotids symmetrical. LUNGS: clear A-P, respiratory effort is normal. CARDIOVASCULAR: RR without murmur or gallop. No significant edema. GI/ABD: soft without masses, without organomegaly. : no CVA tenderness NEURO: No focal deficits. Gait is normal, CN intact, strength 5/5 all extremities and equal, normal sensation SKIN: color normal, no rashes noted. HEME/LYMPH: no bruising, petechia or significant adenopathy MUSC: back is normal in appearance. Extremities are normal in appearance. PSYCH/MENTAL STATUS: Alert and oriented x 3. Assessment Assessment: (1) Numbness and tingling (2) Weakness of right side of body (3) Morbid obesity due to excess calories Assessment 31 year old woman that is morbidly obese with recurrent subjective weakness and numbness which workup thus far has been not revealing. She was ruled out for ACS and CT head was wnl. The patients size at this time is too large for eval with the MRI here at [place]. At this time her symptoms have resolved. DWPT in detail that she needs further outpatient management and workup, she now has health insurance so will fu with her PCP for further workup and treatment. Very low likelihood this is an ischemic process but ok to continue the Baby ASA daily on discharge. Would rec she also fu with neurology. 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 Unsure of how the Budd-chiari malformation plays a role in her symptoms but rec she fu with neurology for this. At this time she is stable, back to normal with no symptoms and I do not think she needs to continue to be monitored or worked up in the inpatient hospital setting at this time. DC today, continue her baby ASA and fu with PCP and neurology PLAN PLAN Patient seen and dw the resident team -- Dr. Barillas, Dr. Hodges, Dr. Talon Naik,Jessica Perdomo MD Jan 18, 2017 08:03
[2017-01-18] MEDS ORDERED: ASPIRIN 81 MG CHEW TAB CHEW SCH (09:00)
[2017-01-18] MEDS: DOCUSATE SODIUM 50 MG/SENNA 8.6 MG TAB PO SCH (09:34)
[2017-01-18] MEDS: SODIUM CHLORIDE 0.9% FLUSH 10 ML FLUSH IV FLUSH SCH (09:34)
--- NOTE | 2017-01-18 10:16 | HHI.DCPOC ---
Discharge Care Plan Diagnosis: (1) Left-sided weakness (2) Numbness and tingling (3) Chest pain in adult Goals to Promote Your Health * To prevent worsening of your condition and complications * To maintain your health at the optimal level Directions to Meet Your Goals Take your medications as prescribed Follow your dietary instruction Follow activity as directed Keep your appointments as scheduled Take your immunizations and boosters as scheduled If your symptoms worsen call your PCP, if no PCP go to Urgent Care Center or Emergency Room Smoking is Dangerous to Your Health. Avoid second hand smoke Call the 24-hour hour crisis hotline for domestic abuse at Cliff Barillas MD, R1 Jan 18, 2017 10:16
--- NOTE | 2017-01-18 14:52 | EKG ---
Date Performed: 01/17/2017 Time Performed: 21:16:40 PTAGE: 31 years EKG: Sinus rhythm NON-SPECIFIC ST/T WAVE CHANGES PREVIOUS TRACING : 01/17/2017 17.09 Compared to prior tracing no significant change DOCTOR: Alexys Gaivn Interpretating Date/Time 01/18/2017 14:51:02
--- NOTE | 2017-01-18 15:17 | EKG ---
Date Performed: 01/17/2017 Time Performed: 17:09:20 PTAGE: 31 years EKG: Sinus rhythm NORMAL ECG PREVIOUS TRACING : 01/17/2017 11.48 Compared to prior tracing no significant change DOCTOR: Alexys Gavin Interpretating Date/Time 01/18/2017 15:16:34
--- NOTE | 2017-01-18 18:08 | EKG ---
Date Performed: 01/17/2017 Time Performed: 11:48:26 PTAGE: 31 years EKG: Sinus rhythm NORMAL ECG Compared to the PREVIOUS TRACING from 01/17/17, no significant change DOCTOR: Alexys Gavin Interpretating Date/Time 01/18/2017 18:07:11
== END 2017-01-18 12:34 | disposition home or self-care (01) ==
LOC: NEPC 11:02 → NEDA 13:49 → NEPFCDU 16:44
PROVIDERS: ADMIT Family Medicine; ATTEND Family Medicine
DX: R53.1 Weakness (principal); R07.89 Other chest pain; R20.2 Paresthesia of skin; H53.8 Other visual disturbances; I82.0 Budd-Chiari syndrome; J45.909 Unspecified asthma, uncomplicated; E66.01 Morbid (severe) obesity due to excess calories; Z68.43 Body mass index [BMI] 50.0-59.9, adult; Z79.82 Long term (current) use of aspirin
CPT/HCPCS: 80048; 82550; 82552; 84484; 85025; 93005; 99285; G0378; J1650

== ENCOUNTER 2017-04-09 18:53 | Emergency (ER) | payer OTHER ==
[~2017-04-09] VITALS: Ht 180.3 cm; Wt 208.2 kg
[~2017-04-09 18:53] MED LIST changes: -ALBUAER3 INH; -PRED50 PO
[2017-04-09 18:55] VITALS: BP 142/98; PULSE 72; RESP 16; TEMP 97.8; O2SAT 99
--- NOTE | 2017-04-09 20:36 | PD ---
HPI Chief Complaint: Chest Pain Time Seen by Provider: 19:02 Travel History International Travel<30 days: No Contact w/Intl Traveler<30days: No Traveled to known affect area: No History of Present Illness HPI Patient is a morbidly obese 31-year-old female with a history of chest pain , patient's complaint today is left lower leg swelling also bilateral foot edema not on diuretic , pt has no fam Hx of coagulopathy , 4 days localized pain , she did not take any meds for this or see another MD for this [facility] Past Medical History Asthma: Yes Cancer: No Cardiovascular Problems: No Cerebrovascular Accident: Yes Diminished Hearing: No Endocrine: No Psychiatric: No Respiratory: Yes Immunizations Current: No Tetanus Vaccination: < 5 Years Influenza Vaccination: No ?: Not LMP: 03/11/17 : 2 Para: 1 Miscarriage: 1 Past Surgical History Section: Yes (x2) Cholecystectomy: Yes Endocrine Surgery: No Tonsillectomy: Yes Other Surgery: Yes (TONSILECTOMY) Social History Alcohol Use: Yes (socially) Tobacco Use: No Substance Use: Yes (Marijuana socially) Allergies-Medications (Allergen,Severity, Reaction): Coded Allergies: Fish Containing Products (Unverified Allergy, Severe, 01/17/17) oxycodone (Unverified Allergy, Severe, Itching, 01/17/17) shellfish derived (Verified Allergy, Intermediate, Itching, 01/17/17) IN THROAT Reported Meds & Prescriptions Reported Meds & Active Scripts Active Reported Aspirin 81 Mg Chew 162 Mg CHEW ONCE Review of Systems Except as stated in HPI: all other systems reviewed are Neg (left posterior calf pain) Musculoskeletal: Positive: Myalgias (left lower posterior calf pain) Physical Exam Narrative GENERAL: Patient is nontoxic in no apparent distress sitting with her legs hanging over the edge of the bed SKIN: Warm and dry. HEAD: Atraumatic. Normocephalic. EYES: Pupils equal and round. No scleral icterus. No injection or drainage. ENT: No nasal bleeding or discharge. Mucous membranes pink and moist. NECK: Trachea midline. No JVD. CARDIOVASCULAR: Regular rate and rhythm. RESPIRATORY: No accessory muscle use. Clear to auscultation. Breath sounds equal bilaterally. GASTROINTESTINAL: Abdomen soft, non-tender, nondistended. Hepatic and splenic margins not palpable. MUSCULOSKELETAL: Extremities minimal edema top of feet bilateral , left lower extremity has tenderness to the proximal upper posterior calf Pt has pain reaction with palpation And minimal edema in the feet BILATERAL seems more gravity dependent than vascular insufficiency NEUROLOGICAL: Awake and alert. No obvious cranial nerve deficits. Motor grossly within normal limits. Five out of 5 muscle strength in the arms and legs. Normal speech. PSYCHIATRIC: Appropriate mood and affect; insight and judgment normal. Data Data Last Documented VS Vital Signs Date Time Temp Pulse Resp B/P (MAP) Pulse Ox O2 Delivery O2 Flow Rate FiO2 04/09/17 23:07 04/09/17 21:05 65 16 98 Room Air 04/09/17 18:55 97.8 Orders Orders Us Leg Venous Doppler (04/09/17 ) Complete Blood Count With Diff (04/09/17 19:50) Comprehensive Metabolic Panel (04/09/17 19:50) Prothrombin Time / Inr (Pt) (04/09/17 19:50) Ketorolac Inj (Toradol Inj) (04/09/17 22:30) Ed Discharge Order (04/09/17 22:32) Labs Laboratory Tests Test 04/09/17 20:00 White Blood Count 9.7 TH/MM3 Red Blood Count 4.41 MIL/MM3 Hemoglobin 10.9 GM/DL Hematocrit 34.0 % Mean Corpuscular Volume 77.2 FL Mean Corpuscular Hemoglobin 24.6 PG Mean Corpuscular Hemoglobin Concent 31.9 % Red Cell Distribution Width 17.3 % Platelet Count 451 TH/MM3 Mean Platelet Volume 8.4 FL Neutrophils (%) (Auto) 68.0 % Lymphocytes (%) (Auto) 19.8 % Monocytes (%) (Auto) 9.1 % Eosinophils (%) (Auto) 2.1 % Basophils (%) (Auto) 1.0 % Neutrophils # (Auto) 6.6 TH/MM3 Lymphocytes # (Auto) 1.9 TH/MM3 Monocytes # (Auto) 0.9 TH/MM3 Eosinophils # (Auto) 0.2 TH/MM3 Basophils # (Auto) 0.1 TH/MM3 CBC Comment DIFF FINAL Differential Comment Prothrombin Time 10.6 SEC Prothromb Time International Ratio 1.0 RATIO Blood Urea Nitrogen 8 MG/DL Creatinine 0.81 MG/DL Random Glucose 81 MG/DL Total Protein 8.2 GM/DL Albumin 3.1 GM/DL Calcium Level 8.5 MG/DL Alkaline Phosphatase 96 U/L Aspartate Amino Transf (AST/SGOT) 21 U/L Alanine Aminotransferase (ALT/SGPT) 17 U/L Total Bilirubin 0.3 MG/DL Sodium Level 136 MEQ/L Potassium Level 4.0 MEQ/L Chloride Level 101 MEQ/L Carbon Dioxide Level 25.7 MEQ/L Anion Gap 9 MEQ/L Estimat Glomerular Filtration Rate 100 ML/MIN MDM Medical Decision Making Medical Screen Exam Complete: Yes Emergency Medical Condition: Yes Differential Diagnosis Differential diagnosis includes DVT versus edema of obesity versus peripheral vascular disease versus venous insufficiency versus trauma versus popliteal Jean Baptiste cyst Narrative Course Ultrasound DVT rule out is negative for clot patient is given Toradol 30 IV with much improvement of her pain and discharged follow-up as an outpatient with her primary care doctor will write her for 12.5 of hydrochlorothiazide daily a.m. for 7 days . and folow up with PCP and elevate her feet as much as possible Diagnosis Primary Impression: Peripheral edema Additional Impression: Calf pain Qualified Codes: M79.662 - Pain in left lower leg Patient Instructions: General Instructions, Leg Pain (ED) Disposition: 01 DISCHARGE HOME Condition: Good Flaquito Chatterjee MD Apr 09, 2017 20:36
[2017-04-09 20:45] LABS: AUTOMATED NEUTROPHIL # 6.6 TH/MM3 (1.8-7.7); BASOPHIL # 0.1 TH/MM3 (0-0.2); EOSINOPHIL # 0.2 TH/MM3 (0-0.4); EOSINOPHIL % 2.1 % (0.0-4.0); HEMOGLOBIN 10.9 GM/DL (11.6-15.3); LYMPH % 19.8 % (9.0-44.0); LYMPHOCYTE # 1.9 TH/MM3 (1.0-4.8); MEAN CELL VOLUME 77.2 FL (80.0-100.0); MEAN CORPUSCULAR HEMOGLOBIN 24.6 PG (27.0-34.0); MEAN CORPUSCULAR HGB CONC 31.9 % (32.0-36.0); MEAN PLATELET VOLUME 8.4 FL (7.0-11.0); MONO % 9.1 % (0.0-8.0); MONOCYTE # 0.9 TH/MM3 (0-0.9); PLATELET COUNT 451 TH/MM3 (150-450); RED BLOOD COUNT 4.41 MIL/MM3 (4.00-5.30); RED CELL DISTRIBUTION WIDTH 17.3 % (11.6-17.2); WHITE BLOOD COUNT 9.7 TH/MM3 (4.0-11.0)
[2017-04-09 20:48] LABS: PROTHROMBIN TIME - PATIENT 10.6 SEC (9.8-11.6)
[2017-04-09 20:55] LABS: ALBUMIN 3.1 GM/DL (3.4-5.0); ALT (GPT) 17 U/L (10-53); AST (GOT) 21 U/L (15-37); BICARBONATE 25.7 MEQ/L (21.0-32.0); BLOOD UREA NITROGEN 8 MG/DL (7-18); CALCIUM 8.5 MG/DL (8.5-10.1); CHLORIDE 101 MEQ/L (98-107); CREATININE 0.81 MG/DL (0.50-1.00); GLOMERULAR FILTRATION RATE 100 ML/MIN (>89); GLUCOSE,RANDOM 81 MG/DL (74-106); SODIUM (NA) 136 MEQ/L (136-145)
[2017-04-09 20:58] LABS: ALKALINE PHOSPHATASE 96 U/L (45-117); TOTAL BILIRUBIN ADULT 0.3 MG/DL (0.2-1.0); TOTAL PROTEIN 8.2 GM/DL (6.4-8.2)
[2017-04-09 21:05] VITALS: BP 108/51; PULSE 65; RESP 16; O2SAT 98
--- NOTE | 2017-04-09 21:53 | RADRPT ---
EXAM DATE/TIME: 04/09/2017 21:16 [place] COMPARISON: No previous studies available for comparison. INDICATIONS : Left leg pain. MEDICAL HISTORY : . Cerebrovascular accident. Asthma. SURGICAL HISTORY : Tonsillectomy. Cholecystectomy. section. ENCOUNTER: Initial ACUITY: 1 day PAIN SCORE: 2/10 LOCATION: Left leg. TECHNIQUE: Venous ultrasound of the leg was performed from the inguinal ligament to the proximal calf. Real-robby e, color Doppler and spectral tracing, compression and augmentation techniques were used. FINDINGS: There is normal compressibility of the deep venous system from the inguinal region to the proximal ca lf. No echogenic clot is seen in the lumen of the common femoral, femoral, popliteal, and posterior tibial veins. There is a normal response of the venous system to proximal and distal augmentation an d respiration. CONCLUSION: Normal examination. Yazan Mcmahan MD on April 09, 2017 at 21:52 Board Certified Radiologist. This report was verified electronically.
[2017-04-09] MEDS ORDERED: KETOROLAC TROMETHAMINE 30 MG/ML (IVP) VIAL IV PUSH ONE (22:30)
== END 2017-04-09 22:40 | disposition home or self-care (01) ==
LOC: NEPE 18:53
DX: R60.0 Localized edema (principal); M79.662 Pain in left lower leg; E66.01 Morbid (severe) obesity due to excess calories; J45.909 Unspecified asthma, uncomplicated; Z86.73 Personal history of transient ischemic attack (TIA), and cerebral infarction without residual deficits; Z88.5 Allergy status to narcotic agent; Z79.82 Long term (current) use of aspirin
CPT/HCPCS: 80053; 85025; 85610; 93971; 96374; 99285; J1885